=== PATIENT | female | born 1995 | race Caucasian/White ===

== ENCOUNTER 2021-06-08 06:07 | Inpatient (IN) ==
[2021-06-08] MEDS ORDERED: Azithromycin 500 MG in 0.9 % Sodium Chloride 250 ML IVPB PRN (06:10)
[2021-06-08] MEDS ORDERED: Ondansetron 4 MG/2 ML VIAL IVP PRN (06:10)
[2021-06-08] MEDS ORDERED: *HR* FentaNYL (PF) 100 MCG/2 ML VIAL IVP PRN (06:10)
[2021-06-08] MEDS ORDERED: *HR* Nalbuphine 10 MG/ML AMPUL IV PRN (06:10)
[2021-06-08] MEDS ORDERED: Famotidine 20 MG/2 ML VIAL IVP PRN (06:10)
[2021-06-08] MEDS ORDERED: Metoclopramide 10 MG/2 ML VIAL IVP PRN (06:10)
[2021-06-08] MEDS ORDERED: Lidocaine 1% 20 ML MDV INFILT PRN (06:10)
[2021-06-08] MEDS ORDERED: Naloxone 0.4 MG/ML INJ IVP PRN (06:10)
[2021-06-08] MEDS ORDERED: miSOPROStoL 25 MCG TABLET PO PRN (06:10)
[2021-06-08] MEDS ORDERED: Ringers Solution, Lactated 1,000 ML IVC SCH (06:15)
[2021-06-08] MEDS ORDERED: D5% in Lactated Ringers 1,000 ML IVC SCH (06:15)
[2021-06-08 06:51] LABS: Basophils % 0.5 %; Eosinophils # 0.1 K/mcL (0.0-0.6); Eosinophils % 1.2 %; Hematocrit 38.7 % (35.3-44.9); Hemoglobin 12.5 g/dL (11.5-15.4); Immature Granulocytes % 0.3 % (0-4); Lymphocytes % 22.3 %; Mean Corpuscular HGB Conc 32.3 g/dL (31.6-35.5); Mean Corpuscular Hemoglobin 29.5 pg (28.0-33.3); Mean Corpuscular Volume 91.3 fL (83.0-100.0); Mean Platelet Volume 11.3 fL (9.4-12.4); Monocytes # 0.9 K/mcL (0.0-1.3); Monocytes % 10.4 %; Neutrophils # 5.8 K/mcL (1.6-8.9); Platelet Count 212 K/mcL (140-400); Red Blood Count 4.24 M/mcL (3.82-4.97); Red Cell Distribution Width 13.9 % (11.5-14.5); Segmented Neutrophils % 65.3 %; White Blood Count 8.8 K/mcL (4.3-11.1)
[2021-06-08 07:53] LABS: Influenza A PCR Negative (Negative); Influenza B PCR Negative (Negative); Resp. Syncytial Virus PCR Negative (Negative)
[2021-06-08 07:54] LABS: SARS-CoV-2 by PCR (In House) Negative (Negative)
[2021-06-08 08:48] LABS: Amphetamine Screen,Urine Negative ng/mL (Cutoff=1000); Barbiturate Screen,Urine Negative ng/mL (Cutoff=200); Benzodiazepines Screen,Urine Negative ng/mL (Cutoff=200); Cannabinoid Screen,Urine Negative ng/mL (Cutoff = 50); Cocaine Screen,Urine Negative ng/mL (Cutoff= 300); Opiate Screen,Urine Negative ng/mL (Cutoff=300); Phencyclidine Screen,Urine Negative ng/mL (Cutoff=25)
[2021-06-08] MEDS ORDERED: Oxytocin 30 UNIT/503 ML BAG IVC SCH (11:15)
[2021-06-08] MEDS ORDERED: Ropivacaine/PF 0.2% 20 ML VIAL EP ONE (11:56)
[2021-06-08] MEDS ORDERED: *HR* FentaNYL (PF) 100 MCG/2 ML VIAL EP ONE (11:56)
[2021-06-08] MEDS ORDERED: EPHEDrine 50 MG/ML VIAL IVP PRN (11:56)
[2021-06-08] MEDS ORDERED: Epidural Premix (fent/bupiv) 110 ML EP SCH (12:00)
[2021-06-08] MEDS ORDERED: Epidural Premix (fent/bupiv) 110 ML EP ONE (12:01)
[2021-06-08] MEDS ORDERED: Isovue-370 500 ML BOTTLE IVP ONE (18:31)
[2021-06-08] MEDS ORDERED: Ropivacaine/PF 0.2% 20 ML VIAL ONE (23:36)
[2021-06-08] MEDS ORDERED: *HR* FentaNYL (PF) 100 MCG/2 ML VIAL ONE (23:36)
[2021-06-09] MEDS ORDERED: Benzocaine/Menthol 56 GM AEROSOL SPRAY TP PRN (03:55)
[2021-06-09] MEDS ORDERED: Lanolin 7 G OINT...G. TP PRN (03:55)
[2021-06-09] MEDS ORDERED: Measles/Mumps/Rubella Vacc 0.5 ML VIAL SQ PRN (03:55)
[2021-06-09] MEDS ORDERED: Rho Immune Globulin 1,500 UNIT SYRINGE IM PRN (03:55)
[2021-06-09] MEDS ORDERED: Ondansetron ODT 4 MG TAB.RAPDIS SL PRN (03:55)
[2021-06-09] MEDS: Ibuprofen 600 MG TABLET PO SCH ×3 (06:26→18:01)
[2021-06-09] MEDS: Acetaminophen 325 MG TABLET PO SCH ×3 (06:26→18:01)
[2021-06-09] MEDS: Prenatal Vit/FA 1 EACH TABLET PO SCH (07:52)
[2021-06-09 16:49] VITALS: O2SAT 98
[2021-06-10] MEDS: Acetaminophen 325 MG TABLET PO SCH ×2 (02:20→08:30)
[2021-06-10] MEDS: Ibuprofen 600 MG TABLET PO SCH ×2 (02:20→08:30)
[2021-06-10 07:19] VITALS: BP 116/70; PULSE 66; TEMP 97.7
[2021-06-10] MEDS: Prenatal Vit/FA 1 EACH TABLET PO SCH (08:30)
== END 2021-06-10 13:46 | disposition home or self-care (01) | DRG 806 ==
LOC: 1NENULAB 06:07 → 1NENUOBS 06-09 03:57
PROVIDERS: ADMIT Obstetrics & Gynecology; ATTEND Obstetrics & Gynecology